=== PATIENT | male | born 1980 | race Caucasian/White ===

== ENCOUNTER 2017-06-01 20:50 | Emergency (ER) | payer SELFPAY ==
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
[2017-06-01 22:51] VITALS: BP 111/72
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
== END 2017-06-01 22:59 | disposition home or self-care (01) ==
LOC: ED 20:50
DX: S06.0X0A Concussion without loss of consciousness, initial encounter (principal); S16.1XXA Strain of muscle, fascia and tendon at neck level, initial encounter; S46.912A Strain of unspecified muscle, fascia and tendon at shoulder and upper arm level, left arm, initial encounter; V40.5XXA Car driver injured in collision with pedestrian or animal in traffic accident, initial encounter; Y93.89 Activity, other specified; Y92.410 Unspecified street and highway as the place of occurrence of the external cause; R53.83 Other fatigue
CPT/HCPCS: 72125; 99281

== ENCOUNTER 2017-08-07 16:05 | Emergency (ER) | payer OTHER ==
[2017-08-07 16:29] VITALS: BP 110/70
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
== END 2017-08-07 18:05 | disposition home or self-care (01) ==
LOC: UCEAST 16:05
DX: F07.81 Postconcussional syndrome (principal); F98.8 Other specified behavioral and emotional disorders with onset usually occurring in childhood and adolescence
CPT/HCPCS: 99211; G0463

== ENCOUNTER 2017-11-04 16:48 | Emergency (ER) | payer SELFPAY ==
--- OUTSIDE RECORDS SUMMARY | 2017-11-04 17:09 | XMS REPORT ---
:1980 External Reference #:[id number] Author Organization [facility] Address [address] [address] Phone [phone] Care Team Providers Name Role Phone Anna Dudley MD Primary Care Physician Unavailable Payers Type Date Identification Numbers Payment Provider Subscriber Workers Compensation Effective: Policy Number: Avelino Harris 2017 [id number] Onset: 2017 PayID: [id number] [address] [place] [address] Commercial Policy Number: [id number] Keith Harris PayID: [id number] [address] [place] [address] Problems Date Description Provider Status Onset: 08/28/2017 Postconcussion syndrome Hilario Mckay M.D. Active Onset: 11/04/2017 Concussion without loss of Hilario Mckay M.D. Active consciousness, subs encntr Onset: 11/04/2017 Posttraumatic headache Hilario Mckay M.D. Active Family History Date Family Member(s) Problem(s) Comments General Alzheimer's Disease Father Heart Disease Mother Alive And Well Social History Type Date Description Comments ETOH Use Rarely consumes alcohol Smoking Patient has never smoked Recreational Drug Use Denies Drug Use Allergies, Adverse Reactions, Alerts Date Description Reaction Status Severity Comments 08/28/2017 NKDA active Medications Medication Date Status Form Strength Qnty SIG Indications Ordering Provider Methylprednisolon 11/04 Active TBPK 4mg 21uni take as S06.0x0D Hilario boogie Mckay M.D. on package Promethazine HCL 11/04 Active Tablets 25mg 10tab 1 by S06.0x0D fish Mckay M.D. every 12 hours X 2 doses then as needed prn. Do not drive while taking and do not take if somnolent Hydrocodone-Aceta 11/04 Active Tablets 7.5-325mg 6tabs take 1 by S06.0x0D Hilario markham russell Mckay M.D. every 8 hours as needed. Hold for excessive somnolenc e Riboflavin 08/28 Active Capsules 100mg 120ca 4 by F07.81 ps russell Mckay M.D. each day Trazodone HCL Active Tablets 50mg 1-2 Unknown /0000 tablet at bedtime as needed Butalbital/Acetam Active Tablets 50-325-40 1 tab po Trevor, inophen/Caffeine /0000 mg q 4hrs as Gianni, needed N.P. Vyvanse Active Capsules 40mg Take One Unknown /0000 Capsule By Mouth Every Morning Maximum Daily Dose 1 Capsule Fluoxetine HCL Active Tablets 20mg 1 tab by Nygren, /0000 mouth MD Gloria daily Vital Signs Date Vital Result Comment 11/04/2017 Height 66 inches 5'6" Weight 131.12 lb Heart Rate 70 /min BP Systolic Sitting 110 mmHg BP Diastolic Sitting 76 mmHg Respiratory Rate 16 /min O2 % BldC Oximetry 98 % BMI (Body Mass Index) 21.2 kg/m2 08/28/2017 Height 66 inches 5'6" Weight 130.00 lb Heart Rate 70 /min BP Systolic Sitting 118 mmHg BP Diastolic Sitting 70 mmHg Respiratory Rate 16 /min BMI (Body Mass Index) 21.0 kg/m2 Results Description No Information Procedures Description No Information Encounters Type Date Location Provider CPT E/M Dx Office Visit 08/28/2017 [facility] Hilario Mckay, [address] S06.0x0D 11:00a Vincenzo G44.309 Plan of Care Future Appointment(s):12/14/2017 8:00 am - Hilario Mckay M.D. at [facility]11/24/2017 2:00 pm - Jimi Danielson M.D. at [facility]11/04/2017 - Hilario Mckay M.D.S06.0x0D Concussion without loss of consciousness, subs encntrNew Medication:Methylprednisolone 4 mgPromethazine HCL 25 mgHydrocodone-Acetaminophen 7.5-325 mgFollow up:Follow up in 6 weeksRecommendations:Take medications as directed. Do not take Trazodone for the next 48 hours Do not take Vyvanse for the next 48 hours Hold dose of phenergan or hydrocodone for excessive [id number] Post-traumatic headache , unspecified, not intractable
[2017-11-04] MEDS ORDERED: diPHENhydraMINE IV* 50 MG/ML 1 ml VIAL (BENADRYL) IM ONE (18:16)
[2017-11-04] MEDS ORDERED: Metoclopramide IV* 5 MG/ML 2 ML VIAL ONE (18:16)
[2017-11-04] MEDS ORDERED: Butalb/Acetamin/Caff TAB* 1 TAB PO ONE (18:17)
[2017-11-04] MEDS ORDERED: diPHENhydraMINE IV* 50 MG/ML 1 ml VIAL (BENADRYL) IV ONE (19:27)
[2017-11-04 21:07] VITALS: BP 111/74
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
== END 2017-11-04 21:06 | disposition home or self-care (01) ==
LOC: ED 16:48
DX: R51 Headache (principal)
CPT/HCPCS: 96374; 96375; 99283; A9270-GY; J1200; J2765

== ENCOUNTER 2019-06-14 17:11 | Emergency (ER) | payer OTHER ==
[2019-06-14 19:29] VITALS: BP 142/96
--- NOTE | 2019-06-14 19:41 | UC ---
Shoulder Pain HPI - HPI Summary HPI Summary: Patient is a 39yo male presenting with L scapular pain and neck pain that he states he began to feel on Thursday after boxing on Thursday and Thursday. Denies direct injury or trauma, stating he was "only hitting a bag." Patient states he has had similar scapular pain in the past that just "goes away with rest." States this pain is worse and it has moved into shoulder and L side of neck. Notes intermittent pain radiating down L arm into wrist. Denies numbness and tingling. Denies decreased strength. Denies decreased ROM, but states pain is worse with any movement of neck and L shoulder. Denies any alleviating factors. Patient states he took ibuprofen with little relief. - History of Current Complaint Chief Complaint: UCBackPain Stated Complaint: LEFT SHOULDER PAIN, NAUSEA Hx Obtained From: Patient Onset/Duration: Gradual Onset, Lasting Days Timing: Constant Severity Initially: Moderate Severity Currently: Severe Pain Intensity: 9 Pain Scale Used: 0-10 Numeric Character: Sharp, Throbbing, Stiffness - Allergies/Home Medications Allergies/Adverse Reactions: Allergies Allergy/AdvReac Type Severity Reaction Status Date / Time No Known Allergies Allergy Verified 06/14/19 17:24 Home Medications: Home Medications Dextroamphetamine/Amphetamine [Adderall 5 mg Tablet] 5 mg PO DAILY WITH MEAL 09/28 [History Confirmed 06/14/19] Fluoxetine HCl [Prozac] 20 mg PO DAILY WITH MEAL 06/14/19 [History Confirmed 09/28] PMH/Surg Hx/FS Hx/Imm Hx Previously Healthy: Yes - Surgical History Surgical History: None Surgery Procedure, Year, and Place: DENIES - Family History Known Family History: Positive: None, Unknown - Pt denies family hx when asked. Family History: Pt denies family hx when asked. - Social History Occupation: Employed Full-time Alcohol Use: Rare Substance Use Type: None Smoking Status (MU): Never Smoked Tobacco Review of Systems All Other Systems Reviewed And Are Negative: No Constitutional: Positive: Negative Skin: Negative: Bruising Respiratory: Positive: Negative Cardiovascular: Positive: Negative Gastrointestinal: Positive: Negative Motor: Positive: Negative Neurovascular: Positive: Negative. Negative: Decreased Sensation Musculoskeletal: Positive: Arthralgia - L scapula, shoulder, neck. Negative: Edema Neurological: Negative: Weakness, Paresthesia, Numbness Physical Exam Triage Information Reviewed: Yes Appearance: Well-Appearing, No Pain Distress, Well-Nourished Vital Signs: Initial Vital Signs Temp 98.5 F 06/14/19 17:19 Pulse 62 06/14/19 17:19 Resp 18 06/14/19 17:19 BP 126/88 06/14/19 17:19 Pulse Ox 99 06/14/19 17:19 Vital Signs Reviewed: Yes Eyes: Positive: Conjunctiva Clear ENT: Positive: Hearing grossly normal Neck: Positive: Supple Respiratory Exam: Normal Respiratory: Positive: Lungs clear, Normal breath sounds, No respiratory distress Cardiovascular Exam: Normal Cardiovascular: Positive: RRR, Pulses Normal - strong radial pulses, Brisk Capillary Refill Musculoskeletal: Positive: Strength Intact, ROM Intact, No Edema, Other: - tenderness to palpation of L trapezius muscle Neurological Exam: Other - sensation grossly intact Neurological: Positive: Alert Psychological: Positive: Age Appropriate Behavior Skin Exam: Normal - no erythema or ecchymosis Diagnostics - Radiology C spine Radiology Interpretation Completed By: ED Physician Summary of Radiographic Findings: straightening of C spine. negative fx L scapula Radiology Interpretation Completed By: ED Physician Summary of Radiographic Findings: negative fx Shoulder Course/Dx - Course Course Of Treatment: Discussed initial read of xrays with patient and that final report will be obtained in the morning. Discussed straightening of C spine and symptomatic treatment, including use of flexeril. Instructed not to take flexeril with trazodone. Instructed patient to follow up with PCP or PT for further eval if pain persists. Patient voiced understanding and agreed with treatment plan. - Differential Dx/Diagnosis Differential Diagnosis/HQI/PQRI: Sprain, Strain Provider Diagnosis: Muscle spasms of neck Discharge ED - Sign-Out/Discharge Documenting (check all that apply): Patient Departure All imaging exams completed and their final reports reviewed: No - Discharge Plan Condition: Stable Disposition: HOME Prescriptions: Cyclobenzaprine TAB* [Flexeril 10 MG TAB*] 10 mg PO BID PRN #10 tab PRN Reason: Spasms - Neck Patient Education Materials: Cyclobenzaprine (By mouth), Muscle Spasm (ED) Forms: *Work Release Referrals: Anna Dudley MD [Primary Care Provider] - If Needed Additional Instructions: As discussed, your xrays did not show any fractures. Take Flexeril as prescribed for muscle spasms. This may make you drowsy, so do not drive or operate heavy machinery while taking it. DO NOT take in conjunction with your trazodone. Rest, ice, heat, and take ibuprofen as directed to help alleviate pain symptoms. Refrain from strenuous physical activity until pain has resolved. If symptoms persist or worsen, follow up with your primary care physician. - Billing Disposition and Condition Condition: STABLE Disposition: Home
[2019-06-14] MEDS ORDERED: Ibuprofen TAB* 600 MG PO ONE (19:48)
--- NOTE | 2019-06-15 10:27 | UC ---
- Progress Note Progress Note: RADIOLOGY REPORTS REVIEWED. CONFIRMS STRAIGHTENING CERVICAL SPINE WITH MILD DEGENERATIVE DISC DISEASE. NO FRACTURE OF THE SCAPULA. NO CHANGE IN MGMT. Course/Dx - Diagnoses Provider Diagnoses: Muscle spasms of neck Discharge ED - Sign-Out/Discharge Documenting (check all that apply): Post-Discharge Follow Up All imaging exams completed and their final reports reviewed: Yes - Discharge Plan Condition: Stable Disposition: HOME Prescriptions: Cyclobenzaprine TAB* [Flexeril 10 MG TAB*] 10 mg PO BID PRN #10 tab PRN Reason: Spasms - Neck Patient Education Materials: Cyclobenzaprine (By mouth), Muscle Spasm (ED) Forms: *Work Release Referrals: Anna Dudley MD [Primary Care Provider] - If Needed Additional Instructions: As discussed, your xrays did not show any fractures. Take Flexeril as prescribed for muscle spasms. This may make you drowsy, so do not drive or operate heavy machinery while taking it. DO NOT take in conjunction with your trazodone. Rest, ice, heat, and take ibuprofen as directed to help alleviate pain symptoms. Refrain from strenuous physical activity until pain has resolved. If symptoms persist or worsen, follow up with your primary care physician. - Billing Disposition and Condition Condition: STABLE Disposition: Home
== END 2019-06-14 20:48 | disposition home or self-care (01) ==
LOC: UCEAST 17:11
DX: M62.838 Other muscle spasm (principal); M50.80 Other cervical disc disorders, unspecified cervical region; M50.30 Other cervical disc degeneration, unspecified cervical region; M25.512 Pain in left shoulder
CPT/HCPCS: 72050; 99212; A9270-GY; G0463

== ENCOUNTER 2019-06-15 15:45 | Emergency (ER) | payer OTHER ==
[2019-06-15 15:52] VITALS: BP 121/92
[2019-06-15] MEDS ORDERED: Diazepam TAB(*) 5 MG PO ONE (17:29)
[2019-06-15] MEDS ORDERED: Lidocaine PATCH 5%* 1 PATCH TRANSDERM ONE (17:30)
[2019-06-15] MEDS ORDERED: Ketorolac TAB * 10 MG TAB PO ONE (17:30)
--- NOTE | 2019-06-15 17:30 | ED ---
Upper Extremity Pain - HPI Summary HPI Summary: 39 year old M [facility] accompanied by father complains of left shoulder pain starting Thursday06/12/19, worse since Thursday. The patient was boxing on Thursday and experienced pain under his shoulder that radiated to the neck after. Pt also reports feeling tingling sensation radiating down his L arm , elbow, into the wrist. He went to Urgent Care yesterday where the took a neck and scapula X-rays. Pt reports taking Flexeril and advil but neither helped subdue the pain. No medical problems or SHx. FMHx of cardiac disease. The patient rates the pain 7/10 in severity. Symptoms aggravated by extension/arm movement. Symptoms alleviated by nothing. - History of Current Complaint Chief Complaint: EDShoulderClavicleInj Stated Complaint: LT SHOULDER AND NECK PAIN PER PT Time Seen by Provider: 06/15/19 16:58 Hx Obtained From: Patient Mechanism Of Injury: Other - Boxing Onset/Duration: Started Days Ago, Worse Since Timing: Constant, Lasting Days - Since 06/12/19 Severity Initially: Moderate Severity Currently: Moderate - 7/10 Pain Location: Shoulder - Underneath shoulder, Other: - radiates to neck Aggravating Factor(s): Extension Alleviating Factor(s): Nothing Associated Signs & Symptoms: Positive: Numbness/Tingling, Neck Pain - radiates from shoulder - Allergies/Home Medications Allergies/Adverse Reactions: Allergies Allergy/AdvReac Type Severity Reaction Status Date / Time No Known Allergies Allergy Verified 06/14/19 17:24 PMH/Surg Hx/FS Hx/Imm Hx Previously Healthy: Yes Endocrine/Hematology History: Denies: Hx Diabetes, Hx Thyroid Disease Cardiovascular History: Reports: Hx Angina Denies: Hx Coronary Artery Disease, Hx Hypercholesterolemia, Hx Hypertension , Hx Myocardial Infarction, Hx Pacemaker/ICD, Hx Valvular Heart Disease Respiratory History: Denies: Hx Asthma, Hx Chronic Obstructive Pulmonary Disease (COPD) GI History: Denies: Hx Ulcer History: Denies: Hx Renal Disease Musculoskeletal History: Denies: Hx Scoliosis Sensory History: Denies: Hx Hearing Aid Neurological History: Reports: Hx Headaches Denies: Other Neuro Impairments/Disorders Psychiatric History: Denies: Hx Panic Disorder - Surgical History Surgery Procedure, Year, and Place: DENIES Infectious Disease History: No Infectious Disease History: Denies: Hx Clostridium Difficile, Hx Hepatitis, Hx Human Immunodeficiency Virus (HIV), Hx of Known/Suspected MRSA, Hx Shingles, Hx Tuberculosis, Traveled Outside the [place] in Last 30 Days - Family History Known Family History: Positive: Cardiac Disease - Social History Alcohol Use: Rare Hx Substance Use: No Substance Use Type: Reports: None Hx Tobacco Use: No Smoking Status (MU): Never Smoked Tobacco Review of Systems Negative: Fever Positive: Arthralgia - Left shoulder pain that radiates into neck Positive: Paresthesia All Other Systems Reviewed And Are Negative: Yes Physical Exam - Summary Physical Exam Summary: Constitutional: Well-developed, Well-nourished, Alert. (-) Distressed Skin: Warm, Dry HENT: Normocephalic; Atraumatic Eyes: Conjunctiva normal Neck: Musculoskeletal ROM normal neck. (-) JVD, (-) Stridor, (-) Nuchal rigidity Cardio: Rhythm regular, rate normal, Heart sounds normal; Intact distal pulses; Radial pulses are 2+ and symmetric. (-) Murmur Pulmonary/Chest wall: Effort normal. (-) Respiratory distress, (-) Wheezes, (-) Rales Abd: Soft, (-) tenderness, (-) Distension, (-) Guarding, (-) Rebound Musculoskeletal: (-) Edema, tenderness over left trapezius, left sternocleidomastoid, no midline cervical tenderness, pain with shoulder extension, Abduction, full strength of right arm with sensation intact and 2+ radial pulse Neuro: Alert, Oriented x3 Psych: Mood and affect Normal Triage Information Reviewed: Yes Vital Signs On Initial Exam: Initial Vitals Temp Pulse Resp BP Pulse Ox 98.1 F 98 16 121/92 98 06/15/19 15:48 06/15/19 15:48 06/15/19 15:48 06/15/19 15:48 06/15/19 15:48 Vital Signs Reviewed: Yes Procedures - Sedation Patient Received Moderate/Deep Sedation with Procedure: No Diagnostics - Vital Signs Vital Signs Temp Pulse Resp BP Pulse Ox 06/15/19 15:48 98.1 F 98 16 121/92 98 - Laboratory Lab Statement: Any lab studies that have been ordered have been reviewed, and results considered in the medical decision making process. Re-Evaluation - Re-Evaluation First Eval Re-Evaluation Time: 18:00 Change: Improved - feeling better, plan for dc to home. Course/Dx - Course Course Of Treatment: 39 y/o male p/w L shoulder pain after boxing several days ago. - PE w tenderness over the L trapezius and sternocleidomastoid muscles. No midline tenderness. Some pain w shoulder abduction. - recent neg films, suspect pain 2/2 trapezius strain. Given toradol and valium, lido patch. - no e /o c spine injury, (did have some paresthesias resolved now which are likely 2/ 2 trapezius and paraspinal muscle strains) does not require further imaging at this time. - Diagnoses Provider Diagnoses: Trapezius strain Discharge ED - Sign-Out/Discharge Documenting (check all that apply): Patient Departure - discharge - Discharge Plan Condition: Stable Disposition: HOME Prescriptions: Diazepam TAB(*) [Valium TAB(*)] 5 mg PO BEDTIME PRN 5 Days #5 tab MDD 1 PRN Reason: Pain - Severe Ketorolac TAB * [Toradol TAB *] 10 mg PO Q6H 5 Days #20 tab Patient Education Materials: Shoulder Pain (ED) Referrals: Anna Dudley MD [Primary Care Provider] - Additional Instructions: You were seen in the emergency department for left shoulder pain. Please take Toradol as needed for pain, Valium at night for muscle pain -do not drive as this can make you drowsy. If any studies were not completed at the time of discharge you will be called with the relevant results. Please follow up with your primary care doctor in next 2-3 days and return to emergency department for worsening pain, numbness or tingling of your arms, weakness or concerning symptoms. It was a pleasure taking care of you today. - Billing Disposition and Condition Condition: STABLE Disposition: Home - Attestation Statements Document Initiated by Scribe: Yes Documenting Scribe: Anabel Gomez Provider For Whom Juan Alberto is Documenting (Include Credential): Ann-Marie Wang MD. Scribe Attestation: IPaulo Kathryn O'Connor, scribed for Ann-Marie Wang MD. on at [id number]. Scribe Documentation Reviewed: Yes Provider Attestation: The documentation as recorded by the cristianibe, Paulo Dixon, Anabel O'Eamon accurately reflects the service I personally performed and the decisions made by me, Ann-Marie Wang MD. Status of Scribe Document: Viewed
[2019-06-15] MEDS ORDERED: Acetaminophen TAB* 325 MG PO ONE (17:31)
[2019-06-15] MEDS ORDERED: Lidocaine Patch REMOVE* 1 NOTE MISC SCH (21:00)
== END 2019-06-15 18:41 | disposition home or self-care (01) ==
LOC: ED 15:45
DX: S46.812A Strain of other muscles, fascia and tendons at shoulder and upper arm level, left arm, initial encounter (principal); M25.512 Pain in left shoulder; M54.2 Cervicalgia; X50.9XXA Other and unspecified overexertion or strenuous movements or postures, initial encounter; Y93.71 Activity, boxing; Y92.9 Unspecified place or not applicable
CPT/HCPCS: 99282; A9270-GY